=== PATIENT | male | born 1990 | race Caucasian/White ===

== ENCOUNTER 2021-08-15 09:44 | Emergency (ER) | payer OTHER ==
[~2021-08-15] VITALS: Ht 182.9 cm; Wt 69.9 kg
[2021-08-15] MEDS ORDERED: PROPRANOLOL HCL60 M1 PO (14:10)
== END 2021-08-15 14:39 | disposition home or self-care (01) ==
LOC: ER 09:44
DX: U07.1 COVID-19 (principal); R00.0 Tachycardia, unspecified; E07.9 Disorder of thyroid, unspecified

== ENCOUNTER 2021-08-16 11:11 | Outpatient (CLI) | payer OTHER ==
[~2021-08-16 11:11] MED LIST: PROPRANOLOL HCL60 M1 PO
== END 2021-08-16 12:20 | disposition home or self-care (01) ==
LOC: ASH CLINIC 11:11
PROVIDERS: ATTEND General Practice
DX: U07.1 COVID-19 (principal)